=== PATIENT | female | born 1955 | race Hispanic/Latino ===

== ENCOUNTER 2024-04-05 17:35 | Emergency (ER) | payer MEDICARE, OTHER ==
[~2024-04-05] VITALS: Ht 154.9 cm; Wt 72.6 kg
[2024-04-05] MEDS: SODIUM CHLORIDE 0.9% 1000ML 2,000 ML IV STA (17:55)
[2024-04-05 18:01] LABS: BASOPHILS % 0.4 % (0.0-1.0); EOSINOPHILS # (AUTO) 0.2 (0.0-0.4); EOSINOPHILS % 3.1 % (0.0-6.0); HEMATOCRIT 35.4 % (34.2-44.1); HEMOGLOBIN 11.4 g/dL (12.0-16.0); LYMPHOCYTES # (AUTO) 1.1 (1.0-3.2); LYMPHOCYTES % 14.6 % (18.0-39.1); MEAN CORPUSCULAR HEMOGLOBIN 29.8 pg (28-32); MEAN CORPUSCULAR HGB CONC 32.2 g/dL (31-35); MEAN CORPUSCULAR VOLUME 92.4 fL (81-99); MONOCYTES # (AUTO) 0.5 (0.2-0.8); MONOCYTES % 6.3 % (4.4-11.3); NEUTROPHILS # (AUTO) 5.6 (2.1-6.9); NEUTROPHILS % 75.3 % (38.7-80.0); PLATELET COUNT 266 x10e3/uL (140-360); RED BLOOD COUNT 3.83 x10e6/uL (3.6-5.1); RED CELL DISTRIBUTION WIDTH 12.6 % (11.7-14.4); WHITE BLOOD COUNT 7.48 x10e3/uL (4.8-10.8)
[2024-04-05 18:22] LABS: ALBUMIN 4.3 g/dL (3.5-5.0); ANION GAP 18.8 mmol/L (8-16); BILIRUBIN,TOTAL 0.2 mg/dL (0.2-1.2); CALCIUM 9.6 mg/dL (8.4-10.2); CREATININE, SERUM 1.24 mg/dL (0.57-1.11); POTASSIUM 3.8 mmol/L (3.5-5.1); TOTAL PROTEIN 8.5 g/dL (6.5-8.1)
[2024-04-05 18:28] LABS: TROPONIN I 0.014 ng/mL (0-0.300)
[2024-04-05 18:49] VITALS: TEMP 99.1
[2024-04-05] MEDS: ACETAMINOPHEN 325 MG TAB PO ONE (18:57)
[2024-04-05 19:29] LABS: CORONAVIRUS COVID-19 AG NEGATIVE (NEGATIVE); INFLUENZA A AG NEGATIVE (NEGATIVE); INFLUENZA B AG NEGATIVE (NEGATIVE)
[2024-04-05 19:35] LABS: STREPTOCOCCUS GRP A ANTIGEN NEGATIVE (NEGATIVE)
[2024-04-05] MEDS ORDERED: SODIUM CHLORIDE 0.9% 1000ML 1,000 ML ONE (20:05)
[2024-04-05] MEDS: SODIUM CHLORIDE 0.9% 1000ML 1,000 ML IV ONE (20:12)
[2024-04-05] MEDS ORDERED: DILTIAZEM HCL VIAL 5 ML ONE (21:16)
[2024-04-05] MEDS ORDERED: METOPROLOL TARTRATE INJ 1 MG/ML VIAL ONE (21:16)
[2024-04-05] MEDS: METOPROLOL TARTRATE INJ 1 MG/ML VIAL IV STA (21:18)
[2024-04-05] MEDS: DILTIAZEM HCL 5 MG/ML 5 ML VIAL IV STA (21:19)
[2024-04-05] MEDS: SODIUM CHLORIDE 0.9% 1000ML 1,000 ML IV STA (21:25)
[2024-04-05] MEDS ORDERED: SODIUM CHLORIDE 0.9% 1000ML 1,000 ML IV SCH (21:30)
[2024-04-05] MEDS ORDERED: Morphine 4mg INJECTION 4 MG/ML INJ IV PRN (21:30)
[2024-04-05] MEDS ORDERED: ONDANSETRON HCL INJ 2MG/ML 2ML 2 MG/ML VIAL IV PRN (21:30)
[2024-04-05 21:46] VITALS: PULSE 89; RESP 17
[2024-04-05 22:26] VITALS: BP 135/79; PULSE 97; RESP 17; TEMP 98.3; O2SAT 98
== END 2024-04-05 22:31 | disposition home or self-care (01) ==
LOC: ER 17:50
DX: R06.02 Shortness of breath (principal); R00.0 Tachycardia, unspecified; I10 Essential (primary) hypertension; Z11.52 Encounter for screening for COVID-19; R94.31 Abnormal electrocardiogram [ECG] [EKG]
CPT/HCPCS: 36415; 71045; 80053; 82550; 83518; 83690; 83880; 84484; 85025; 87070; 87428; 93005; 99284; J7030